=== PATIENT | male | born 1985 | race Caucasian/White ===

== ENCOUNTER 2020-02-27 12:29 | Emergency (ER) | payer SELFPAY ==
[2020-02-27 12:37] VITALS: BP 147/82; PULSE 84; RESP 20; TEMP 36.1; O2SAT 99
--- NOTE | 2020-02-27 12:39 | ED.EYEPROB ---
HPI - Eye Problem General Chief complaint: Eye Problems Stated complaint: Eye Pain Time Seen by Provider: 02/27/20 12:39 Source: patient, family and RN notes reviewed Mode of arrival: ambulatory Limitations: no limitations History of Present Illness HPI Narrative: 35 year old male [facility] with complaints of pain to his right eye with tearing and photophobia. Patient states that he slept with his contacts in last pm and when he awoke this morning he was unable to open his right eye. Patient states that he was able to remove his contacts but right eye remains painful with excessive tearing, pain and photophobia and he can't keep his right eye open. Visual acuity performed with some blurring of his right eye vision with acuity 20/100 right eye and 20/40 left eye with glasses in place. chief complaint: eye pain, eye redness and eye injury (slept in contact lenses) Onset (ago): hour(s) (since this morning) Onset description: awoke with symptoms Duration: constant Location: right eye Eye Symptoms: burning, redness, blurry vision and photophobia Place: home and other (slept in contact) Mechanism: other (slept in contact lenses) Severity: severe Severity scale (1-10): 9 If Pain, Quality: burning and aching Context: contact lens use Associated symptoms: none Treatments Prior to Arrival: removed contact lens Related Data Patient tetanus UTD: Yes Home Medications Medication Instructions Recorded Confirmed venlafaxine 150 mg PO DAILY 02/27/20 02/27/20 Allergies Allergy/AdvReac Type Severity Reaction Status Date / Time No Known Allergies Allergy Verified 02/27/20 12:41 Review of Systems Review of Systems: Narrative: CONSTITUTIONAL: Denies fever, chills, or sweats. EYES:Positive for visual changes, redness, or excessive tearing and photophobia ENT: Denies rhinorrhea, congestion, sore throat, or otalgia. CARDIOVASCULAR: Denies chest pain, palpitations, or edema. RESPIRATORY: Denies cough or dyspnea. GASTROINTESTINAL: Denies abdominal pain, nausea, vomiting, or diarrhea. GENITOURINARY: Denies dysuria or hematuria. SKIN: Denies rash or itching. MUSCULOSKELETAL: Denies back pain, joint pain, or myalgia. NEUROLOGIC: Denies headache, numbness, or weakness. PSYCHIATRIC: Positive anxiety or depression. All systems reviewed & are unremarkable except as noted in HPI and below PMFSH Past Medical History Medical History (Updated 02/28/20 @ 18:54 by Wanda Sr NP) Anxiety Back pain due to injury PTSD (post-traumatic stress disorder) Surgical History Surgical History (Updated 02/27/20 @ 12:44 by Wanda Sr NP) H/O left inguinal hernia repair H/O right inguinal hernia repair Social History Social History (Updated 02/28/20 @ 18:42 by Wanda Sr NP) Smoking status: Former smoker Alcohol intake: current Substance use: never Living arrangements: with family Gender identity (if verbalized by the patient): Male Comments At time of signature, agree with nursing past medical, surgical, social history. There is no relevant family history pertinent to the presenting complaint Exam Narrative: Exam Narrative: GENERAL: Well-appearing, well-nourished, and in no acute distress. HEAD: Normocephalic, atraumatic. EYES: PERRLA and EOMI. complaints of pain, photophobia to right eye with the sclera red, Patient having a lot of difficulty keeping his right eye open, visual acuity and eye exam completed using mejia lamp and staining eye with Fluorescein with note abrasion on cornea noted. at 5 o'clock ENT: Nares clear, no rhinorrhea or epistaxis. Mucous membranes moist. NECK: Supple.no lymphadenopathy CHEST: Clear to auscultation. No respiratory distress. HEART: Regular rate and rhythm. No murmur heard. Normal peripheral pulses. ABDOMEN: Soft, nontender, nondistended, normal active bowel sounds. EXTREMITIES: Normal range of motion. No edema. SKIN: Warm, dry, no rash. NEURO: No focal deficits.
--- NOTE | 2020-02-27 13:10 | PC.NURSE ---
EYE PATCH APPLIED TO RT EYE
[2020-02-27 13:11] VITALS: BP 147/82; PULSE 84; RESP 20; TEMP 36.1; O2SAT 99
== END 2020-02-27 13:04 | disposition home or self-care (01) ==
PROVIDERS: Emergency Provider Registered Nurse
DX: S05.01XA Injury of conjunctiva and corneal abrasion without foreign body, right eye, initial encounter (principal); X58.XXXA Exposure to other specified factors, initial encounter; F41.9 Anxiety disorder, unspecified; Z87.891 Personal history of nicotine dependence
CPT/HCPCS: 99213; A9270; G0463

== ENCOUNTER 2021-09-24 20:01 | Inpatient (IN) | payer OTHER, SELFPAY ==
--- NOTE | ~2021-09-24 | CT_ITS ---
EXAMINATION: CT abdomen pelvis wo con DATE: 09/24/2021 22:02 INDICATION: Right lower quadrant pain TECHNIQUE: Computed tomography (CT) of the abdomen and pelvis was performed without intravenous contr ast. The dose-length product (DLP) was 1647.76 mGy-cm. Automated exposure control and iterative recon struction technique were employed. COMPARISON: None FINDINGS: The lung bases are clear. The heart size is normal. The liver, pancreas, gallbladder, and a drenal glands are normal. There is mild splenomegaly. The kidneys are unremarkable. There is an appen dicolith at the base of the appendix. Although limited by the absence of intravenous contrast, the ap pendix is dilated up to 1.4 cm. There is edematous stranding of the periappendiceal fat. No definite periappendiceal fluid collection is identified. There is no adjacent free intraperitoneal gas. There is right retroperitoneal lymphadenopathy. There are left inguinal varices versus lymphadenopathy. The re are superficial varices in the right groin of unclear etiology. There are no dilated loops of kaylie l. IMPRESSION: 1. Acute appendicitis. 2. Right retroperitoneal lymphadenopathy, reactive versus malignancy 3. Varices versus lymphadenopathy of the left groin. Further evaluation with ultrasound is recommende d. 4. Right inguinal varices. 5. Mild splenomegaly. Reviewed, dictated and finalized at location F. IMPRESSION: 1. Acute appendicitis. 2. Right retroperitoneal lymphadenopathy, reactive versus malignancy 3. Varices versus lymphadenopathy of the left groin. Further evaluation with ul trasound is recommended. 4. Right inguinal varices. 5. Mild splenomegaly.
[2021-09-24 20:08] VITALS: BP 152/71; PULSE 84; RESP 20; TEMP 36.8; O2SAT 99
[2021-09-24 20:33] LABS: Basophils Percent Auto 0.1 % (0.2-1.2); Eosinophils Absolute Auto 0.1 K/mm3 (0-0.3); Eosinophils Percent Auto 0.4 % (0-4.4); Hematocrit 39.1 % (42.0-52.0); Hemoglobin 12.9 g/dL (14.0-18.0); Immature Granulocyte Absolute 0.05 K/mm3 (0.00-0.031); Immature Granulocyte Percent A 0.4 % (0-0.5); Lymphocytes Absolute Auto 1.86 K/mm3 (0.9-3.2); Lymphocytes Percent Auto 13.8 % (18.3-44.2); Mean Corpuscular Hemoglobin 32.2 pg (26-34); Mean Corpuscular Volume 97.5 fl (80-100); Mean Platelet Volume 11.2 fl (7.4-10.4); Monocytes Absolute Auto 1.1 K/mm3 (0.1-0.6); Monocytes Percent Auto 8.3 % (2.6-8.5); Neutrophils Absolute Auto 10.4 K/mm3 (1.3-6.7); Platelet Count Result 207 k/mm3 (150-375); Red Blood Count 4.01 M/mm3 (4.6-6.20); Red Cell Distribution Width 13.4 % (11.5-14.5); White Blood Count 13.5 K/mm3 (4.5-10.0)
[2021-09-24 20:42] LABS: Alanine Aminotransferase 19 U/L (6-50); Albumin Level 4.6 g/dL (3.5-5.1); Alkaline Phosphatase 62 U/L (38-126); Anion Gap 7 mmol/L (8-16); Aspartate Amino Transferase 29 U/L (17-59); Bilirubin,Total 0.7 mg/dL (0.2-1.3); Blood Urea Nitrogen 14 mg/dL (9-20); Calcium 8.8 mg/dL (8.4-10.2); Carbon Dioxide 26 mmol/L (22-30); Chloride 103 mmol/L (98-107); Estimated CRCL calculation 198 ml/min; Estimated Glomerular Filt Rate > 60; Glucose 100 mg/dL (65-110); Lipase 27 U/L (23-300); Potassium 4.2 mmol/L (3.4-5.0); Sodium 136 mmol/L (137-145)
--- NOTE | 2021-09-24 21:28 | PC.NURSE ---
Pt's foot accidentally rolled over by Triage Nurse while she was trying to navigate past his outstretched leg. nurse clinical was trying to push another pt into Triage
[2021-09-24] MEDS: SODIUM CHLORIDE 0.9% IV 1,000 ML 999 ML IV CONT (22:08)
[2021-09-24] MEDS: MORPHINE SULFATE (*CRX) 4 MG/ML INJ IV PUSH ×2 (22:08→22:55)
[2021-09-24 22:12] LABS: Appearance Urine Clear (Clear); Bilirubin Urine Negative (Negative); Blood Urine Negative (Negative); Color Urine Yellow (Yellow); Glucose Urine UA Negative (Negative); Ketones Urine Negative (Negative); Leukocyte Esterase Ur Negative LEU/UL (Negative); Nitrate Urine Negative (Negative); Protein Urine Negative (Negative); Urobilinogen Urine 0.2 mg/dL (<2.0); pH Urine 7.5 (5.0-9.0)
[2021-09-24 22:13] LABS: Add Urine Microscopic? NO
[2021-09-24 22:17] VITALS: BP 133/78; PULSE 72; RESP 16; TEMP 37; O2SAT 98
--- NOTE | 2021-09-24 22:33 | ED.GENADULT ---
HPI - General Adult General Chief complaint: Abdominal Pain Stated complaint: RLQ pain Time Seen by Provider: 09/24/21 21:34 History of Present Illness HPI narrative: Patient is a 36-year-old male who presents ER with right lower quadrant pain. Ongoing for 4 days. Increasing in pain. Worse with any type of bending or twisting or movement. No fevers or chills or sweats. Reports urinary frequency. Has found no alleviating factors other than sitting still. Radiates into his back and right upper quadrant. No blood in his urine. He did feel like he was constipated and took a laxative with no improvement. Related Data Home Medications Medication Instructions Recorded Confirmed venlafaxine 150 mg 150 mg PO DAILY 02/27/20 02/27/20 capsule,extended release 24 hr Allergies Allergy/AdvReac Type Severity Reaction Status Date / Time No Known Allergies Allergy Verified 02/27/20 12:41 Review of Systems Review of Systems: All systems reviewed & are unremarkable except as noted in HPI and below Constitutional: Constitutional: Denies chills, Denies fatigue and Denies fever(s) Respiratory: Respiratory: Denies cough and Denies dyspnea Gastrointestinal: Gastrointestinal: Reports abdominal pain, Reports constipation, Denies diarrhea, Denies nausea and Denies vomiting Genitourinary: Genitourinary: Denies dysuria, Denies testicular pain and Reports urinary frequency Musculoskeletal: Musculoskeletal: Reports back pain and Denies myalgias PMFSH Past Medical History Medical History (Updated 09/24/21 @ 23:27 by Syd Bowles MD) Anxiety Back pain due to injury Hypertension PTSD (post-traumatic stress disorder) Surgical History Surgical History (Updated 02/27/20 @ 12:44 by Wanda Sr NP) H/O left inguinal hernia repair H/O right inguinal hernia repair Social History Social History (Updated 02/28/20 @ 18:42 by Wanda Sr NP) Smoking status: Former smoker Alcohol intake: current Substance use: never Gender identity (if verbalized by the patient): Male Exam Narrative: GENERAL: Well-appearing, well-nourished, and in no acute distress. HEAD: Normocephalic, atraumatic. ENT: Mucous membranes moist. CHEST: Clear to auscultation. No respiratory distress. HEART: Regular rate and rhythm. Normal peripheral pulses. ABDOMEN: Soft, right lower quadrant tenderness at McBurney's point, positive Rovsing/obturator/psoas sign. Nondistended. EXTREMITIES: Normal range of motion. No edema. Large lower extremity varicose veins. SKIN: Warm, dry, no rash. NEURO: Alert and oriented x3. PSYCH: Normal mood and affect. Course Course Emergency Course: Discussed with general surgery admit to their service. Zosyn ordered for antibiotic coverage. Patient aware of diagnosis and treatment plan. Vital Signs Vital signs: Vital Signs Temperature 98.2 F 09/24/21 20:08 Pulse Rate 84 09/24/21 20:08 Respiratory Rate 20 09/24/21 20:08 Blood Pressure 152/71 H 09/24/21 20:08 Pulse Oximetry 99 09/24/21 20:08 Oxygen Delivery Room Air 09/24/21 20:08 Temperature 98.6 F 09/24/21 22:17 Pulse Rate 72 09/24/21 22:17 Respiratory Rate 16 09/24/21 22:17 Blood Pressure 133/78 09/24/21 22:17 Pulse Oximetry 98 09/24/21 22:17 Oxygen Delivery Room Air 09/24/21 20:08 Medical Decision Making Vital Signs Vital Signs: Vital Signs Temperature 98.2 F 09/24/21 20:08 Pulse Rate 84 09/24/21 20:08 Respiratory Rate 20 09/24/21 20:08 Blood Pressure 152/71 H 09/24/21 20:08 Pulse Oximetry 99 09/24/21 20:08 Oxygen Delivery Room Air 09/24/21 20:08 Temperature 98.6 F 09/24/21 22:17 Pulse Rate 72 09/24/21 22:17 Respiratory Rate 16 09/24/21 22:17 Blood Pressure 133/78 09/24/21 22:17 Pulse Oximetry 98 09/24/21 22:17 Oxygen Delivery Room Air 09/24/21 20:08 Lab Data Result diagrams: 09/24/21 20:26 09/24/21 20:26 Nola
[2021-09-24] MEDS: SODIUM CHLORIDE 0.9% IV 1,000 ML 125 ML IV CONT (22:58)
[2021-09-24 23:01] VITALS: BP 129/65; O2SAT 99
[2021-09-24 23:20] LABS: INR 1.3; Prothrombin Time 15.3 Seconds (11.1-14.7)
[2021-09-24 23:21] LABS: Partial Thromboplastin Time 35.8 SECONDS (22.3-36.8)
[2021-09-24 23:31] VITALS: BP 127/64; O2SAT 96
[2021-09-24 23:31] LABS: SARS-CoV-2 RNA PCR Negative
[2021-09-25] VITALS (16 sets, daily range): BP systolic 128–164; BP diastolic 63–92; PULSE 64–83; RESP 14–25; TEMP 35.9–36.8; O2SAT 93–100; BMI 40.6
[2021-09-25] MEDS: MORPHINE SULFATE (*CRX) 4 MG/ML INJ IV PUSH ×7 (01:19→21:30)
--- NOTE | 2021-09-25 02:20 | ADMGEN ---
This patient, Papi Cesar, was admitted to 3 [facility] Surg Room 316-01. Patient/family oriented to hospital policies and general routines including ID bracelet, bed and alarms, visiting hours, pain management, procedures, bathroom and other care routines, personal items, smoking policy, room service/diet, and visiting hours. Information on how to activate the Rapid Response Team has been discussed. Patient/Family are encouraged to report perceived risks to care and to ask questions if they do not understand what they are told or what they should do.
[2021-09-25] MEDS: SODIUM CHLORIDE 0.9% IV 1,000 ML 125 ML IV CONT (06:58)
--- NOTE | 2021-09-25 09:30 | PC.NURSE ---
report given to Sharon in pre-op.
--- NOTE | 2021-09-25 09:54 | PC.NURSE ---
pt picked up by pre op
--- NOTE | 2021-09-25 10:07 | WPDANESEPPF ---
Anes - Initial Pre Proc Eval Procedure: Operation Date: 09/25/21 11:00 Proposed Procedures p Laparoscopic Appendectomy - Seng Waite MD Date/Time: 09/25/21 10:07 Surgeon: Seng Waite MD Pre Op Diagnosis: appendicitis Patient Data Age: 36 Gender: M Height: 1.91 m Weight: 147.5 kg Last Vital Signs Temp 36.8 C 09/25/21 05:34 Pulse 64 09/25/21 05:34 Resp 18 09/25/21 05:34 BP 136/64 09/25/21 05:34 Pulse Ox 97 09/25/21 05:34 O2 Del Method Room Air 09/24/21 20:08 Allergies Allergy/AdvReac Type Severity Reaction Status Date / Time No Known Allergies Allergy Verified 02/27/20 12:41 Home Medications Medication Instructions Recorded Confirmed Type venlafaxine 150 mg 150 mg PO DAILY 02/27/20 09/25/21 History capsule,extended release 24 hr lisinopril 10 mg tablet 10 mg PO DAILY 09/25/21 09/25/21 History Laboratory Tests 09/24/21 09/24/21 09/24/21 20:26 20:26 21:51 WBC 13.5 K/mm3 H K/mm3 (4.5-10.0) RBC 4.01 M/mm3 L M/mm3 (4.6-6.20) Hgb 12.9 g/dL L g/dL (14.0-18.0) Hct 39.1 % L % (42.0-52.0) MCV 97.5 fl fl (80-100) MCH 32.2 pg pg (26-34) MCHC 33.0 g/dl g/dl (32-36) RDW 13.4 % % (11.5-14.5) Plt Count 207 k/mm3 k/mm3 (150-375) MPV 11.2 fl H fl (7.4-10.4) Immature Gran % (Auto) 0.4 % % (0-0.5) Neut % (Auto) 77.0 % H % (45.5-73.1) Lymph % (Auto) 13.8 % L % (18.3-44.2) Coleman % (Auto) 8.3 % % (2.6-8.5) Eos % (Auto) 0.4 % % (0-4.4) Baso % (Auto) 0.1 % L % (0.2-1.2) Lymph # (Auto) 1.86 K/mm3 K/mm3 (0.9-3.2) Coleman # (Auto) 1.1 K/mm3 H K/mm3 (0.1-0.6) Eos # (Auto) 0.1 K/mm3 K/mm3 (0-0.3) Baso # (Auto) 0.0 K/mm3 K/mm3 (0.0-0.1) Abs Immat Gran (auto) 0.05 K/mm3 H K/mm3 (0.00-0.031) Absolute Neuts (auto) 10.4 K/mm3 H K/mm3 (1.3-6.7) Absolute Nucleated RBC 0.0 K/mm3 K/mm3 (0.0-0.012) Nucleated RBC % 0.0 % % (0.0-0.2) PT INR APTT Sodium 136 mmol/L L mmol/L (137-145) Potassium 4.2 mmol/L mmol/L (3.4-5.0) Chloride 103 mmol/L mmol/L (98-107) Carbon Dioxide 26 mmol/L mmol/L (22-30) Anion Gap 7 mmol/L L mmol/L (8-16) BUN 14 mg/dL mg/dL (9-20) Creatinine 0.70 mg/dL mg/dL (0.7-1.3) Estim Creat Clear Calc 198 ml/min ml/min Estimated GFR > 60 (59 - ) Glucose 100 mg/dL mg/dL (65-110) Calcium 8.8 mg/dL mg/dL (8.4-10.2) Total Bilirubin 0.7 mg/dL mg/dL (0.2-1.3) AST 29 U/L U/L (17-59) ALT 19 U/L U/L (6-50) Alkaline Phosphatase 62 U/L U/L (38-126) Total Protein 8.0 g/dL g/dL (6.3-8.2) Albumin 4.6 g/dL g/dL (3.5-5.1) Lipase 27 U/L U/L (23-300) Urine Color Yellow (Yellow) Urine Appearance Clear (Clear) Urine pH 7.5 (5.0-9.0) Ur Specific [place] 1.020 (1.001-1.035) Urine Protein Negative mg/dL mg/dL (Negative) Urine Glucose (UA) Negative mg/dL mg/dL (Negative) Urine Ketones Negative mg/dL mg/dL (Negative) Ur Blood (Man) Negative (Negative) Urine Nitrate Negative (Negative) Urine Bilirubin Negative (Negative) Urine Urobilinogen 0.2 mg/dL mg/dL (<2.0) Leukocyte Esterase Rfl Negative GORDO/UL GORDO/UL (Negative) SARS-CoV-2 RNA (RT-PCR) Blood Type Antibody Screen 09/24/21 09/24/21 09/25/21 22:32 22:43 08:19 WBC RBC Hgb Hct MCV MCH MCHC RDW Plt Count MPV Immature Gr
[2021-09-25] MEDS: LACTATED RINGERS 1,000 ML 30 ML IV CONT ×4 (10:25→13:12)
--- NOTE | 2021-09-25 10:29 | PM.IMHP ---
H&P: HPI History of Present Illness Date/Time: 09/25/21 10:29 Chief Complaint: Right lower quadrant abdominal pain Narrative: This is a 36-year-old male who presented to the emergency department with complaints of right lower quadrant abdominal pain for 4 days. He he initially noticed pain Wednesday that was sharp and radiated to his right groin. He has never had this pain before. He reports having symptomatic inguinal hernias in the past and reports this pain is much different. He tried going to work the next few days and was unable to work due to the severity of the pain. He reports some nausea at times, but no vomiting. Denies any fever or chills. His pain is aggravated by movement. Do to the unrelenting abdominal pain, he presented to the ER last night. CT scan of the abdomen and pelvis showed acute appendicitis with no evidence of perforation, right retroperitoneal lymphadenopathy, left groin varices versus lymphadenopathy, right inguinal varices, and mild splenomegaly. [place] [address]. Urinalysis negative for UTI. COVID test negative. Our service was contacted by the ED physician for surgical evaluation of acute appendicitis. The patient is now seen on the medical floor. He appears uncomfortable and reports it is all due to his abdominal pain. He reports the morphine is helping, but his pain is persistent. Bowels have been moving normally. No other complaints at this time. He has a history inguinal hernia repair on 3 separate occasions. He has had his right inguinal hernia repaired x2 and left inguinal hernia repair x1. He has had both open surgery on the right and laparoscopic surgery for his hernia repairs. No other abdominal surgeries. Review of Systems Review of Systems: All systems reviewed & are unremarkable except as noted in HPI and below Constitutional: Constitutional: Reports as per HPI, Denies chills, Denies fatigue and Denies fever(s) Eyes: Eyes: Reports no additional eye complaints ENT: Reports system reviewed and no additional complaints, except as documented and Reports Normal hearing present Cardiovascular: Cardiovascular: Reports no additional cardiovascular complaints, Denies chest pain and Denies leg edema Respiratory: Respiratory: Reports no additional respiratory complaints, Denies cough and Denies dyspnea Gastrointestinal: Gastrointestinal: Reports as per HPI, Reports no additional gastrointestinal complaints, Reports abdominal pain, Denies bloating, Denies change in bowel habits, Denies change in stool character, Denies constipation, Reports nausea and Denies vomiting Genitourinary: Genitourinary: Reports no additional male genitourinary complaints, Denies hematuria, Denies dysuria and Reports urinary frequency Musculoskeletal: Musculoskeletal: Reports no additional musculoskeletal complaints and Denies joint swelling Integumentary/Breasts: Skin/Breast: Reports system reviewed and no additional complaints, except as docu and Denies wounds Neurologic: Reports system reviewed and no additional complaints, except as documented, Denies dizziness, Denies focal weakness, Denies numbness and Denies tingling PMFSH Past Medical History Medical History (Updated 09/25/21 @ 10:40 by BRODY Mendoza) Anxiety Back pain due to injury Hypertension Morbid obesity PTSD (post-traumatic stress disorder) Surgical History Surgical History H/O left inguinal hernia repair H/O right inguinal hernia repair History of ankle surgery Family History Family History Other No pertinent family history Social History Social History Smoking packs per day: 0.5 Smoking cigarettes per day: 10.0 Smoking status: Current every day smoker Tobacco type: cigarettes Second hand tobacco smoke exposure: Yes
--- NOTE | 2021-09-25 10:52 | WPDHPUPDATE1 ---
History and Physical Update Update Date/Time: 09/25/21 10:52 History and Physical has been reviewed, including an updated exam of the patient. There are NO changes in the patient's condition. Risks, benefits, and alternatives have been discussed and questions answered. Patient agrees to proceed with procedure.
[2021-09-25] MEDS: ceFAZolin 3 GM/D5W 100 ML 100 ML IVPB (11:04)
[2021-09-25] MEDS: fentaNYL CITRATE INJ (*CRX) 100 MCG/2 ML VIAL 50 MCG IV PUSH (11:12)
[2021-09-25] MEDS: LIDO 1%/EPINEPHRINE/PF 1:200,000 30 ML VIAL INFILTRATE (12:12)
--- NOTE | 2021-09-25 13:22 | W.PM.PROC2 ---
Procedure Note - Detailed Date of Procedure 09/25/21 Pre-op Diagnosis appendicitis Post-op Diagnosis Other (Ruptured appendicitis with abdominal abscess) Procedure Performed Laparoscopic appendectomy for ruptured appendicitis with abscess drainage Surgeon Seng Waite MD Line Service Attendant Radha Sharma [facility] Anesthesia General and Local (1% lidocaine with epinephrine) Indications Patient has a 4 day history of abdominal pain in the right lower quadrant. He tried moving his bowels but this did not help. The pain got worse and he came to the emergency room last night. Evaluation there showed tenderness in the right lower quadrant [place] [address] scan showed appendicitis with appendicoliths. He is taken to surgery now for laparoscopic appendectomy. Findings The appendix was retrocecal and was ruptured with an abscess against the right posterior abdominal wall. There was severe dense inflammation. Dissection was quite bloody resulting in at least 3 times as much blood loss as is typical for this surgery. Patient is morbidly obese and this made the procedure more difficult as well. The severe dilatation and inflammation of the distal appendix required a larger extraction site than is usual with this procedure. This caused problems with insufflation and his obesity causing difficulty keeping the trocars within the abdomen. Closure of the fascia at the extraction site required opening the skin more than usual with direct fascial closure in hand-sewn fashion. The operation took nearly 90 minutes which is 3 times as long as usual for this surgery. Description of Procedure Patient was taken to surgery and induced into general anesthesia. The abdomen was prepped and draped. Initial trocar was a 5 mm port placed in the left subcostal position. With this port in place, we insufflated. He had quite a few anterior abdominal wall omental adhesions but they were mostly on the left side. We were able to navigate around these and placed the other 2 ports on the right side of these adhesions with good visualization of the right lower quadrant. A 5 mm supraumbilical port was then placed. With the patient's obesity, we blew up the balloon at the bottom of the trocar to keep this port in position. A 10 11 port was placed in the infraumbilical midline. Patient was placed in Trendelenburg with the right-side elevated. The cecum was easily seen but the appendix was retrocecal and there was a large amount of inflammatory tissue causing adhesions of the distal ileum and cecum as well as the epiploica. The inflammatory adhesions also caused quite a bit of bleeding when they were broken apart. We used mostly blunt dissection and quite a bit of suction to dissect the inflammatory mass off the right pelvic sidewall. Some adhesions to the cecum that were not involved with the mass were taken down with sharp dissection and cautery. This helped to mobilize the cecum and allow access to the inflammatory mass. The distal appendix was very distended and inflamed and was difficulty to even recognize initially. Eventually this was freed from the pelvic sidewall. Then the more proximal half of the appendix was dissected. As we were doing this dissection and freeing some epiploica from the pelvic sidewall, we entered the abscess cavity and quite a bit of purulent fluid drained. This was suctioned away quickly. We continued our dissection and eventually mobilized the cecum enough so that we could see the more proximal aspect of the appendix. Some additional sidewall dissection was carried out and finally the appendix was fairly well mobilized. At this point, the appendix was elevated and dissection was carried out in the mesoappendix near the base of the appendix. The appendiceal vessels were cauterized and divided. Eventually, using the cautery, the base of the appendix was exposed and skeletonized. I then used a Vicryl endoloop and passed the appendix throug
[2021-09-25] MEDS: fentaNYL CITRATE INJ (*CRX) 100 MCG/2 ML VIAL 25 MCG IV PUSH ×8 (13:28→14:45)
--- NOTE | 2021-09-25 13:51 | SUR.PHASEI ---
1340; PT AWAKE, MOANING AND CRYING OUT IN PAIN. ON THE VERGE OF TEARS. C/O 10/10 PAIN. ASSESSMENT PERFORMED. FENTANYL GIVEN PRN. PT COMFORTED AND ASSISTED TO LAY ON RT SIDE.
--- NOTE | 2021-09-25 14:02 | SUR.PHASEI ---
1355; PT DOZING. SNORING
--- NOTE | 2021-09-25 14:21 | SUR.PHASEI ---
PT SWEATING FACE AND HEAD. COLD CLOTH PLACED ON FORHEAD AND BACK OF NECK. PT DOZING.
--- NOTE | 2021-09-25 14:32 | SUR.PHASEI ---
1425; PT SLEEPING. LAYING ON RT SIDE. UPDATED SIG OTHER GUICHO, SHE SAID HERSELF AND FAMILY WILL BE UP TO SEE HIM TOMORROW MORNING. NOT VISITING [facility]. 1433; CALLED INTO OR. NOTIFIED DR OVERTON OF [facility] BLOODY SEROSANG DRAINAGE FROM BILL
--- NOTE | 2021-09-25 14:35 | SUR.PHASEI ---
PT HEAD AND NECK REMAIN DIAPHORETIC WHILE SLEEPING. COLD CLOTHS PLACED ON FOREHEAD AND BACK OF NECK FOR COMFORT. HOB ELEVATED 30 DEGREES, PT REMAINS SIDELYING
--- NOTE | 2021-09-25 14:55 | PC.NURSE ---
report received from pacu nurse Anastacio
[2021-09-25] MEDS: LACTATED RINGERS 1,000 ML 80 ML IV CONT (15:39)
[2021-09-25] MEDS: ONDANSETRON INJ 4 MG/2 ML VIAL IV PUSH (15:39)
[2021-09-25] MEDS: HYDROcodone/acetaminophen (*CRX) 5-325 MG TABLET 1 TAB PO (15:40)
[2021-09-25] MEDS: FAMOTIDINE 20 MG/2 ML VIAL IV PUSH (20:21)
[2021-09-25] MEDS: HYDROcodone/acetaminophen (*CRX) 10-325 MG TABLET 1 TAB PO (20:21)
[2021-09-26 00:28] VITALS: BP 121/58; PULSE 77; RESP 18; TEMP 36.6; O2SAT 96
[2021-09-26] MEDS: MORPHINE SULFATE (*CRX) 4 MG/ML INJ IV PUSH ×2 (00:55→06:50)
[2021-09-26] MEDS: HYDROcodone/acetaminophen (*CRX) 10-325 MG TABLET 1 TAB PO ×4 (03:32→20:40)
[2021-09-26 03:57] VITALS: BP 142/60; PULSE 72; RESP 18; TEMP 36.4; O2SAT 98
[2021-09-26 06:41] LABS: Hemoglobin 12.4 g/dL (14.0-18.0); Mean Corpuscular HGB Conc 33.5 g/dl (32-36); Mean Corpuscular Volume 95.6 fl (80-100); Mean Platelet Volume 11.5 fl (7.4-10.4); Platelet Count Result 182 k/mm3 (150-375); Red Blood Count 3.87 M/mm3 (4.6-6.20); Red Cell Distribution Width 12.8 % (11.5-14.5); White Blood Count 12.2 K/mm3 (4.5-10.0)
[2021-09-26 06:53] LABS: Anion Gap 3 mmol/L (8-16); Blood Urea Nitrogen 9 mg/dL (9-20); Calcium 8.2 mg/dL (8.4-10.2); Carbon Dioxide 28 mmol/L (22-30); Chloride 104 mmol/L (98-107); Estimated CRCL calculation 197 ml/min; Estimated Glomerular Filt Rate > 60; Glucose 122 mg/dL (65-110); Potassium 3.9 mmol/L (3.4-5.0); Sodium 135 mmol/L (137-145)
[2021-09-26] MEDS: LACTATED RINGERS 1,000 ML 80 ML IV CONT (08:47)
[2021-09-26] MEDS: FAMOTIDINE 20 MG/2 ML VIAL IV PUSH (08:48)
[2021-09-26] MEDS: ENOXAPARIN 40 MG/0.4 ML SYRINGE SUB-Q (08:48)
[2021-09-26] MEDS: VENLAFAXINE HCL XR 75 MG CAP.ER.24H 150 MG PO (08:49)
[2021-09-26] MEDS: lisinopriL 10 MG TABLET PO (08:49)
--- NOTE | 2021-09-26 09:10 | WPDANESPN ---
Anes - Prog Note Post-Op Date/Time: 09/26/21 09:10 Vital Signs: Last Vital Signs Temp 36.4 C L 09/26/21 03:57 Pulse 72 09/26/21 03:57 Resp 18 09/26/21 03:57 BP 142/60 H 09/26/21 03:57 Pulse Ox 98 09/26/21 03:57 O2 Del Method Room Air 09/25/21 20:00 O2 Flow Rate 8 09/25/21 13:30 Pain Score (VAS): 0 I/O: Intake & Output 09/25/21 09/26/21 09/26/21 23:59 07:59 15:59 Intake Total 440 1350 Output Total 530 2020 Balance -90 -670 Laboratory Tests 09/26/21 06:25 09/26/21 06:25 09/25/21 09/26/21 09/26/21 08:19 06:25 06:25 WBC 12.2 H RBC 3.87 L Hgb 12.4 L Hct 37.0 L MCV 95.6 MCH 32.0 MCHC 33.5 RDW 12.8 Plt Count 182 MPV 11.5 H Sodium 135 L Potassium 3.9 Chloride 104 Carbon Dioxide 28 Anion Gap 3 L BUN 9 D Creatinine 0.70 Estim Creat Clear Calc 197 Estimated GFR > 60 Glucose 122 H Calcium 8.2 L Blood Type A Positive Antibody Screen Negative Patient Feedback: Patient satisfied with anesthetic care.
--- NOTE | 2021-09-26 11:00 | PM.PNGS ---
Progress Note: A&P Assessment and Plan (1) Acute appendicitis with perforation and peritoneal abscess: Code(s): K35.33 - Acute appendicitis with perforation and localized peritonitis, with abscess Status: Acute Assessment and Plan: No bowel sounds today and still very tender. Will continue clear liquids and IV antibiotics. Continue inpatient care. Up today walking and in chair. Advance diet when bowel function returns. (2) Tobacco abuse: Code(s): Z72.0 - Tobacco use Status: Acute Assessment and Plan: Start nicotine patch (3) Morbid obesity: Code(s): E66.01 - Morbid (severe) obesity due to excess calories Status: Acute Subjective Subjective Date/Time Seen: 09/26/21 11:00 Post Op day: 1 Patient reports: pain is less, voiding w/o difficulty, no flatus, no bowel movement and afebrile Exam Const: General: cooperative, comfortable, no acute distress, alert and awake; No confusion Nutritional Appearance: obese Orientation/consciousness: patient oriented x3 and No confusion GI: Inspection: non-distended, incision (Incisions dry, healing. BILL serosanguineous) and obesity GI Palp: Yes Soft to palpation, Yes Tenderness to palpation present (GI) (Specially right lower quadrant), No Guarding due to palpation present (GI), No Hernia present, No Palpable mass present and No Rebound tenderness present Auscultation: absent bowel sounds Neuro: General: patient oriented x3, no focal motor deficits and No confusion Extrem: General: no calf tenderness and no edema Psych: Affect: normal affect Insight: Good insight present (Psych) Judgement: Good judgement present (Psych) Objective Data Vital Signs Vital Signs: Vital Signs - 24 hr 09/25/21 13:00 09/25/21 13:15 09/25/21 13:30 Temperature 36.1 C L Pulse Rate 83 76 76 Respiratory Rate 25 H 24 H 14 Blood Pressure 161/84 H 164/79 H 147/76 H Pulse Oximetry 100 100 99 Oxygen Delivery Simple Face Mask Simple Face Mask Simple Face Mask Oxygen Flow Rate 8 8 8 09/25/21 13:45 09/25/21 14:00 09/25/21 14:15 Temperature 36.6 C Pulse Rate 78 72 74 Respiratory Rate 24 H 24 H 20 Blood Pressure 161/92 H 149/90 H 157/81 H Pulse Oximetry 94 93 94 Oxygen Delivery Room Air Room Air Room Air Oxygen Flow Rate 09/25/21 14:30 09/25/21 14:45 09/25/21 14:50 Temperature 35.9 C L Pulse Rate 75 74 69 Respiratory Rate 22 H 19 19 Blood Pressure 159/84 H 160/80 H 154/84 H Pulse Oximetry 94 95 96 Oxygen Delivery Room Air Room Air Oxygen Flow Rate 09/25/21 15:31 09/25/21 15:53 09/25/21 17:06 Temperature 35.9 C L 35.9 C L 36.0 C L Pulse Rate 78 71 77 Respiratory Rate 19 19 19 Blood Pressure 150/80 H 145/70 H 151/67 H Pulse Oximetry 95 95 96 Oxygen Delivery Oxygen Flow Rate 09/25/21 20:00 09/25/21 20:35 09/26/21 00:28 Temperature 36.7 C 36.6 C Pulse Rate 75 77 Respiratory Rate 18 18 Blood Pressure 128/65 121/58 L Pulse Oximetry 96 96 Oxygen Delivery Room Air Oxygen Flow Rate 09/26/21 03:57 09/26/21 08:45 09/25/21 15:38 Temperature 36.4 C L 35.9 C L Pulse Rate 72 78 Respiratory Rate 18 Blood Pressure 142/60 H 150/80 H Pulse Oximetry 98 Oxygen Delivery Room Air Oxygen Flow Rate Intake/Output Intake/Output: Intake & Output 09/23/21 09/24/21 09/25/21 09/26/21 23:59 23:59 23:59 23:59 Intake Total 1050 3040 1600 Output Total 3255 2420 Balance 1052 -208 -800 Meds/Results Medications: Active Medications Generic Name Dose Route Start Last Admin Trade Name Freq PRN Reason Stop Dose Admin Acetaminophen 500 mg 09/25/21 14:50 Acetaminophen 500 Mg Tablet PO Q6H PRN Mild Pain (1-3) or Fever Hydrocodone Bitart/Acetaminophen 1 tab 09/25/21 14:50 09/25/21 15:40 Hydrocodone/Acetaminophen (*Crx) 5-325 Mg Tablet PO 1 tab Q4H PRN Administration Pain Rated 4-6 Hydrocodone Bitart/Acetaminophen 1 tab 09/25/21 14:50 09/26/21 09:44 Hydroc
--- NOTE | 2021-09-26 14:04 | PCNSR ---
On 09/26/21, the student, Felipa Preston, provided care and completed [facility] documentation on this patient. I have reviewed the student's documentation and agree with the findings.
[2021-09-26 16:35] VITALS: BP 131/66; PULSE 73; RESP 20; TEMP 36.6; O2SAT 98
[2021-09-26] MEDS: FAMOTIDINE 20 MG TABLET PO (20:36)
[2021-09-26 21:00] VITALS: BP 134/61; PULSE 90; RESP 18; TEMP 37.6; O2SAT 97
[2021-09-27] MEDS: HYDROcodone/acetaminophen (*CRX) 10-325 MG TABLET 1 TAB PO ×5 (00:31→20:10)
[2021-09-27 05:31] VITALS: BP 150/75; PULSE 74; RESP 16; TEMP 35.8; O2SAT 97
[2021-09-27 06:07] LABS: Hematocrit 41.8 % (42.0-52.0); Hemoglobin 13.9 g/dL (14.0-18.0); Mean Corpuscular HGB Conc 33.3 g/dl (32-36); Mean Corpuscular Hemoglobin 32.1 pg (26-34); Mean Corpuscular Volume 96.5 fl (80-100); Mean Platelet Volume 11.4 fl (7.4-10.4); Platelet Count Result 312 k/mm3 (150-375); Red Blood Count 4.33 M/mm3 (4.6-6.20); Red Cell Distribution Width 12.7 % (11.5-14.5); White Blood Count 19.9 K/mm3 (4.5-10.0)
[2021-09-27 06:22] LABS: Anion Gap 7 mmol/L (8-16); Blood Urea Nitrogen 12 mg/dL (9-20); Calcium 8.6 mg/dL (8.4-10.2); Carbon Dioxide 26 mmol/L (22-30); Chloride 101 mmol/L (98-107); Estimated CRCL calculation 197 ml/min; Estimated Glomerular Filt Rate > 60; Glucose 122 mg/dL (65-110); Potassium 3.9 mmol/L (3.4-5.0); Sodium 134 mmol/L (137-145)
[2021-09-27 08:00] VITALS: PULSE 74; RESP 16; O2SAT 97
[2021-09-27] MEDS: lisinopriL 10 MG TABLET PO (09:58)
[2021-09-27] MEDS: FAMOTIDINE 20 MG TABLET PO ×2 (09:58→20:05)
[2021-09-27] MEDS: VENLAFAXINE HCL XR 75 MG CAP.ER.24H 150 MG PO (09:59)
[2021-09-27] MEDS: NICOTINE (*PBKC) 14 MG PATCH 1 PATCH TRANSDERM (09:59)
[2021-09-27] MEDS: ENOXAPARIN 40 MG/0.4 ML SYRINGE SUB-Q (09:59)
[2021-09-27] MEDS: HYDROcodone/acetaminophen (*CRX) 5-325 MG TABLET 1 TAB PO (12:23)
--- NOTE | 2021-09-27 16:29 | PM.PNGS ---
Progress Note: A&P Assessment and Plan (1) Acute appendicitis with perforation and peritoneal abscess: Code(s): K35.33 - Acute appendicitis with perforation and localized peritonitis, with abscess Status: Acute Assessment and Plan: Hypoactive bowel sounds today and still mildly tender on the right side of the abdomen. Will continue clear liquids and IV antibiotics. Continue inpatient care. Up today walking and in chair. Advance diet when bowel function returns -- positive flatus but no bowel movement yet.. White count up to 19,000 despite on antibiotics. Continue current plan inpatient care and IV antibiotics for now. (2) Tobacco abuse: Code(s): Z72.0 - Tobacco use Status: Acute Assessment and Plan: Contiue nicotine patch (3) Morbid obesity: Code(s): E66.01 - Morbid (severe) obesity due to excess calories Status: Acute Subjective Subjective Date/Time Seen: 09/27/21 11:29 Patient is sleeping when I entered the room. He states He occasionally wakes up with a night sweat. However, nurse reports only a low-grade fever once the last 24 hours. ncouraged patient to use IS and to walk in the comer . Patient has not yet had a bowel movement since surgery. He states he is passing flatus however. He states he is tolerating his clear liquid diet. Review of Systems Respiratory: Respiratory: Reports no additional respiratory complaints, Denies cough and Denies dyspnea Neurologic: Denies confusion Exam Const: General: cooperative, comfortable, no acute distress, alert and awake; No confusion Nutritional Appearance: obese Orientation/consciousness: patient oriented x3 and No confusion HENMT: Head: normocephalic and atraumatic Ears: hearing grossly normal bilaterally Mouth: Yes moist mucous membranes Neck: Neck: normal visual inspection and full ROM Resp: Effort & Inspection: no respiratory distress Auscultation: clear to auscultation bilaterally GI: Inspection: normal to inspection, distended, incision (Incisions dry, healing. BILL serosanguineous), obesity and scar (Transverse right groin scar, small periumbilical trocar site scar) Auscultation: Hypoactive bowel sounds present Rectal Exam: deferred Other: BILL drain with serosanguineous drainage around and in the drain. I changed the dressing around the BILL today with the nurse. : General: Yes no CVA tenderness Neuro: General: patient oriented x3, moves all extremities, no focal motor deficits and No confusion Speech: normal speech Extrem: General: normal to inspection, no clubbing, cyanosis or edema, no calf tenderness and no edema Psych: Mental Status: mental status grossly normal Affect: normal affect Attitude: cooperative Insight: Good insight present (Psych) Judgement: Good judgement present (Psych) Objective Data Vital Signs Vital Signs: Vital Signs - 24 hr 09/26/21 16:35 09/26/21 20:00 09/26/21 21:00 Temperature 36.6 C 37.6 C Pulse Rate 73 90 Respiratory Rate 20 18 Blood Pressure 131/66 134/61 Pulse Oximetry 98 97 Oxygen Delivery Room Air 09/27/21 05:31 09/27/21 08:00 Temperature 35.8 C L Pulse Rate 74 74 Respiratory Rate 16 16 Blood Pressure 150/75 H Pulse Oximetry 97 97 Oxygen Delivery Room Air Intake/Output Intake/Output: Intake & Output 09/24/21 09/25/21 09/26/21 09/27/21 23:59 23:59 23:59 23:59 Intake Total 1050 3040 3068 1010 Output Total 3255 3350 1130 Balance 1050 -215 -282 -120 Meds/Results Medications: Active Medications Generic Name Dose Route Start Last Admin Trade Name Freq PRN Reason Stop Dose Admin Acetaminophen 500 mg 09/25/21 14:50 Acetaminophen 500 Mg Tablet PO Q6H PRN Mild Pain (1-3) or Fever Hydrocodone Bitart/Acetaminophen 1 tab 09/25/21 14:50 09/27/21 12:23 Hydrocodone/Acetaminophen (*Crx) 5-325 Mg Tablet PO 1 tab Q4H PRN Administration Pain Rated 4-6 Hydrocodone Bitart/Acetaminophen 1 tab
[2021-09-27] MEDS: BISACODYL 10 MG SUPPOSITORY RECTAL (18:07)
[2021-09-27 22:00] VITALS: BP 136/59; PULSE 84; RESP 16; TEMP 37; O2SAT 99
[2021-09-28] MEDS: HYDROcodone/acetaminophen (*CRX) 10-325 MG TABLET 1 TAB PO ×4 (00:15→15:39)
[2021-09-28 06:00] VITALS: BP 131/68; PULSE 71; RESP 16; TEMP 36.8; O2SAT 99
[2021-09-28 08:00] VITALS: PULSE 71; RESP 16; O2SAT 99
[2021-09-28] MEDS: ENOXAPARIN 40 MG/0.4 ML SYRINGE SUB-Q (09:34)
[2021-09-28] MEDS: VENLAFAXINE HCL XR 75 MG CAP.ER.24H 150 MG PO (09:34)
[2021-09-28] MEDS: FAMOTIDINE 20 MG TABLET PO (09:35)
[2021-09-28] MEDS: lisinopriL 10 MG TABLET PO (09:35)
[2021-09-28] MEDS: HYDROcodone/acetaminophen (*CRX) 5-325 MG TABLET 1 TAB PO (12:47)
[2021-09-28 14:34] LABS: Basophils Percent Auto 0.2 % (0.2-1.2); Eosinophils Absolute Auto 0.1 K/mm3 (0-0.3); Eosinophils Percent Auto 1.1 % (0-4.4); Hematocrit 37.8 % (42.0-52.0); Hemoglobin 12.5 g/dL (14.0-18.0); Immature Granulocyte Absolute 0.09 K/mm3 (0.00-0.031); Immature Granulocyte Percent A 0.8 % (0-0.5); Lymphocytes Absolute Auto 1.12 K/mm3 (0.9-3.2); Lymphocytes Percent Auto 9.9 % (18.3-44.2); Mean Corpuscular HGB Conc 33.1 g/dl (32-36); Mean Corpuscular Hemoglobin 31.6 pg (26-34); Mean Corpuscular Volume 95.7 fl (80-100); Mean Platelet Volume 10.7 fl (7.4-10.4); Monocytes Absolute Auto 1.4 K/mm3 (0.1-0.6); Monocytes Percent Auto 11.9 % (2.6-8.5); Neutrophils Absolute Auto 8.7 K/mm3 (1.3-6.7); Neutrophils Percent Auto 76.1 % (45.5-73.1); Platelet Count Result 234 k/mm3 (150-375); Red Blood Count 3.95 M/mm3 (4.6-6.20); Red Cell Distribution Width 12.6 % (11.5-14.5); White Blood Count 11.4 K/mm3 (4.5-10.0)
[2021-09-28 14:46] LABS: Anion Gap 4 mmol/L (8-16); Blood Urea Nitrogen 13 mg/dL (9-20); Calcium 8.4 mg/dL (8.4-10.2); Carbon Dioxide 27 mmol/L (22-30); Chloride 102 mmol/L (98-107); Estimated CRCL calculation 227 ml/min; Estimated Glomerular Filt Rate > 60; Glucose 112 mg/dL (65-110); Potassium 3.6 mmol/L (3.4-5.0); Sodium 133 mmol/L (137-145)
--- NOTE | 2021-09-28 15:20 | PM.DS ---
DS: Admitting Diagnosis Discharge Date 09/28/2021 Admitting Diagnosis acute appendicitis with perforation and peritonitis DS: Discharge Diagnosis Discharge Diagnosis (1) Acute appendicitis with perforation and peritoneal abscess: Code(s): K35.33 - Acute appendicitis with perforation and localized peritonitis, with abscess Status: Acute Assessment and Plan: This was the main reason for the patient's admission. He put off coming in because he thought he had a hernia and not appendicitis. CT showed a ruptured appendix. He apparently did have some extra bleeding compared to normal during surgery but this was controlled and the patient had an ileus postop. This is now resolved and there is a drain in place in the area where most of the purulence was in the right lower quadrant. We will leave this in place and the patient will follow up with Dr. Waite in the office later this week. (2) Tobacco abuse: Code(s): Z72.0 - Tobacco use Status: Acute Assessment and Plan: Encouraged patient to remain off cigarettes if at all possible. (3) Hypertension: Code(s): I10 - Essential (primary) hypertension Status: Acute Assessment and Plan: patient to resume his usual medications and follow up with his PCP per previous plans. (4) Morbid obesity: Code(s): E66.01 - Morbid (severe) obesity due to excess calories Status: Acute Assessment and Plan: the patient has already been dieting eating mainly check-in and salads. I encouraged him to continue this but he needs to stay with a soft diet and gradually work back to his usual diet. DS: Summary Hospital Course Reason for hospitalization: Appendicitis with rupture and peritonitis Hospital Course: This was the main reason for the patient's admission. He put off coming in because he thought he had a hernia and not appendicitis. CT showed a ruptured appendix. He apparently did have some extra bleeding compared to normal during surgery but this was controlled and the patient had an ileus postop. This is now resolved and there is a drain in place in the area where most of the purulence was in the right lower quadrant. We will leave this in place and the patient will follow up with Dr. Waite in the office later this week. Patient received his last dose of Zosyn just before discharge. Later tonight he will start his oral Augmentin. Script for Augmentin 500/125 to be taken 3 times a day for 14 more doses and script for [place] 5/325 sent to [facility] electronically. 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 Discussion undertaken with how to take care of the BILL drain in the nurse was reinforcing this. He will be back to possibly have this removed later this week in the office with Dr. Waite. Status at Discharge Functional status at discharge: independent ambulation Overall status at discharge: patient is not back to baseline ( has a Prieb drain in place and still has pain with movement.) Time Spent with Patient Time attestation: Total time spent providing and/or coordinating discharge services: greater than 30 minutes Exam Const: General: cooperative, comfortable, alert and awake Orientation/consciousness: patient oriented x3 HENMT: Head: normal to inspection Mouth: Yes moist mucous membranes Eyes: Sclera: sclerae normal Pupils: Equal, round and reactive pupils present Neck: Neck: normal visual inspection and no JVD Chest: Chest palpation & inspection: normal inspection of the chest Resp: Effort & Inspection: normal respiratory effort Auscultation: clear to auscultation bilaterally Cardio: Jugular venous distension: no JVD Rate: regular rate GI: Inspection: incision ( 3 trocar site incisions healing well with surgical glue in place and see ) Percussion: Yes dullness to percussion Auscultati
== END 2021-09-28 17:50 | disposition home or self-care (01) | DRG 233 ==
LOC: ANHED 23:27 → ANH3MEDSUR 23:37
PROVIDERS: Nurse Practitioner Family; Admitting Provider Surgery; Emergency Provider Emergency Medicine; Visit Provider Surgery
PROC: 0DTJ4ZZ Resection of Appendix, Percutaneous Endoscopic Approach (ICD-10-PCS; CPT 44970; principal; 2021-09-25 11:00)
DX: K35.33 Acute appendicitis with perforation, localized peritonitis, and gangrene, with abscess (principal); Z20.822 Contact with and (suspected) exposure to COVID-19; E66.01 Morbid (severe) obesity due to excess calories; Z68.41 Body mass index [BMI] 40.0-44.9, adult; F17.210 Nicotine dependence, cigarettes, uncomplicated; I10 Essential (primary) hypertension; F43.10 Post-traumatic stress disorder, unspecified; F41.9 Anxiety disorder, unspecified; Z79.899 Other long term (current) drug therapy
CPT/HCPCS: 36415; 74176; 80048; 80053; 81003; 83690; 85025; 85027; 85610; 85730; 86850; 86900; 86901; 88304; 96361; 96365; 96374; 96375; 96376; 99285; A9270; C9803; J0690; J1100; J1170; J1650; J2250; J2270; J2405; J2543; J2704; J3010; J7030; J7120; U0003; U0005